=== PATIENT | female | born 1995 | race African-American/Black ===

== ENCOUNTER 2021-05-01 21:45 | Emergency (ER) | payer OTHER ==
[~2021-05-01] VITALS: Ht 157.5 cm; Wt 84.8 kg
[~2021-05-01 21:45] MED LIST: ACETAMINOPHEN-1 EAC1 PO; AMOXICILLIN 50500 M1 PO; AMOXICILLIN 50500 MG PO; APAP/CODEINE ELI5 M1 OR; AZITHROMYCIN 2250 MG PO; IBUPROFEN 600600 M1 PO; NOHOMEMEDICATIONS; NORCO 5-325 TA1 EACH PO; PROAIR HFA8.5 GM IH; ZPAK PO
[2021-05-02 00:07] VITALS: BP 113/75
== END 2021-05-02 00:14 | disposition home or self-care (01) ==
LOC: ER 21:45
DX: J06.9 Acute upper respiratory infection, unspecified (principal); Z20.822 Contact with and (suspected) exposure to COVID-19; F50.9 Eating disorder, unspecified; F12.90 Cannabis use, unspecified, uncomplicated